=== PATIENT | male | born 2000 | race Caucasian/White ===

== ENCOUNTER → 2021-12-14 | Outpatient (CLI) | payer OTHER | LOC: M RAD 15:13 | PROVIDERS: ATTEND Internal Medicine Pulmonary Disease | DX: R06.00 Dyspnea, unspecified (principal) ==

== ENCOUNTER → 2021-12-18 | Outpatient (CLI) | payer OTHER | LOC: M CARPUL 07:27 | PROVIDERS: ATTEND Physician Assistant | DX: R06.00 Dyspnea, unspecified (principal) ==

== ENCOUNTER → 2022-01-01 | Outpatient (CLI) | payer OTHER ==
[~2022-01-01] MED LIST: METHACHOLINE KIT (J7674) INH ONE
== END ==
LOC: M CARPUL 10:06
PROVIDERS: ATTEND Physician Assistant
DX: R06.00 Dyspnea, unspecified (principal)
CPT/HCPCS: 94070; J7674